=== PATIENT | female | born 1955 | race Caucasian/White ===

== ENCOUNTER → 2022-01-07 | Outpatient (CLI) | payer BC ==
[2022-01-07 10:15] VITALS: BP 136/86; PULSE 106; RESP 16; TEMP 98
--- NOTE | 2022-01-07 10:35 | P.GSHP ---
History of Present Illness H&P Date: 01/07/22 Chief Complaint: left breast pain Jeannie is a 66 year old white female tseen in consultation regarding left breast pain. She had a bilateral mammogram Jun 30 2021, after which additional workup of the left breast including diagnostic mammogram and ultrasound were done. These were felt to be benign BIRAD 2 and repeat in 1 year recommended. She is complaining of pain in her left breast since her last mammogram. She had bruising of her breast. The pain is aching in nature like a pulled muscle, it is not constant. It is not facilitated by anything specific. On a scale of 1-10 it is 5. She has taken aspirin for the discomfort. She does not have any pain in her right breast. She did not have the pain until after the mammogram. She is not complaining of any nipple discharge or skin changes. nicotine: none caffeine: coke daily chocolate: daily BCP: none, hormones:none Family History: brother: colon cancer paternal grandmother: cancer ? type Hormonal History: menarche: 16 G0 menopause: 44 Surgical History: Ventral hernia as a baby RK surgery cataract surgery Medical History: Diabetes Glaucoma Social History: nicotine: none alcohol: rare drugs: none - Constitutional Constitutional: Denies chills, Denies fever - EENT Eyes: bilateral as per HPI (glaucoma/ RK surgery) Ears: bilateral: tinnitus Ears, nose, mouth and throat: Denies headache, Denies sore throat - Breasts Breasts: bilateral: as per HPI - Cardiovascular Cardiovascular: Denies chest pain, Denies shortness of breath - Respiratory Respiratory: Reports cough - Gastrointestinal Gastrointestinal: Reports constipation, Denies abdominal pain, Denies diarrhea, Denies nausea, Denies vomiting - Genitourinary (Female) Genitourinary: Denies dysuria, Denies hematuria - Menstruation Menstruation: Reports postmenopausal - Musculoskeletal Musculoskeletal: Denies myalgias - Integumentary Integumentary: Reports pruritus, Denies rash - Neurological Neurological: Reports numbness, Reports weakness - Psychiatric Psychiatric: Denies anxiety, Denies depression - Endocrine Comment: diabetes - Hematologic/Lymphatic Comment: none - Allergic/Immunologic Allergic/Immunologic: Reports seasonal allergies Past Medical History History of Any Multi-Drug Resistant Organisms: None Reported Smoking Status: Never smoker Medications and Allergies Home Medications Medication Instructions Recorded Confirmed Type Latanoprost/Pf [Latanoprost 0.005% 1 drop BOTH EYES HS 01/07/22 01/07/22 History Eye Drop] Levothyroxine Sodium 125 mcg PO DAILY 01/07/22 01/07/22 History Losartan [Cozaar] 50 mg PO DAILY 01/07/22 01/07/22 History Allergies Allergy/AdvReac Type Severity Reaction Status Date / Time No Known Allergies Allergy Unverified 01/07/22 10:09 Surgical - Exam Vital Signs Temp Pulse Resp BP Pulse Ox 98.0 F 106 H 16 136/86 96 01/07/22 10:11 01/07/22 10:11 01/07/22 10:11 01/07/22 10:11 01/07/22 10:11 BMI: 31.5 - General moderate distress - Eyes normal ocular movement - Neck trachea midline - Respiratory normal respiratory effort, clear to auscultation - Cardiovascular Rhythm: regular Heart Sounds: normal: S1, S2 - Abdomen Abdomen: soft, non tender, no guarding, no rigid, no rebound - Integumentary normal turgor - Neurologic no disoriented, no combative - Musculoskeletal normal gait - Psychiatric oriented to time, oriented to person, oriented to place, speech is normal, memory intact Breast Exam: BRA: 42B Inspection: Bladder grade 3 ptosis Palpation: Right breast: Multi-positional exam fibrocystic changes no dominant masses or nodules of concern Right axilla: No adenopathy of concern Left breast: Multi-positional exam fibrocystic changes no dominant masses or nodules of concern, patient has tenderness in the lateral and inferior aspect of the breast as well as the superior medial aspect of the breast on the muscle of the chest wall greater than in the breast itself Left axilla: No adenopathy of concern Results Mammogram and ultrasound reviewed with Dr. Rasheed Assessment and Plan Assessment: Impression: Left breast pain following a mammogram suspect this may be related to chest wall discomfort Mammogram from June reviewed with Dr. Rasheed, he has recommended repeating left breast mammogram Plan: Left breast mammogram at this time Anti-inflammatory medication/Motrin At this time there is nothing on physical exam to warrant interventional biopsy Follow up after repeat left breast mammogram Bilateral mammogram in 6 months depending on results of left breast mammogram Postop modifications such as stopping caffeine intake, and [place] oil are discussed. We'll consider these. I have had a discussion with the patient regarding breast pain and given her a book on breast pain. Cc: Dr. Charles
== END | disposition home or self-care (01) ==
LOC: WWCWWP 09:31
PROVIDERS: ATTEND Surgery
DX: Z53.9 Procedure and treatment not carried out, unspecified reason (principal)